=== PATIENT | male | born 1995 | race Hispanic/Latino ===

== ENCOUNTER 2022-11-01 22:28 | Emergency (ER) | payer OTHER ==
[~2022-11-01] VITALS: Ht 172.7 cm; Wt 86.2 kg
[2022-11-01] MEDS ORDERED: CHLORPROMAZINE HCL INJ 25 MG/ML AMP INJ ONE (22:45)
[2022-11-01] MEDS ORDERED: METOCLOPRAMIDE HCL 10 MG/2ML VIAL IM ONE (22:45)
[2022-11-01] MEDS ORDERED: THORAZINE25 MG PO (22:46)
[2022-11-01] MEDS ORDERED: METOCLOPRAMIDE HCL 10 MG/2ML VIAL ONE (22:56)
[2022-11-01] MEDS ORDERED: CHLORPROMAZINE HCL INJ 25 MG/ML AMP ONE (22:56)
== END 2022-11-01 23:24 | disposition home or self-care (01) ==
LOC: ER 22:34
DX: R06.6 Hiccough (principal); R94.31 Abnormal electrocardiogram [ECG] [EKG]
CPT/HCPCS: 93005; 99283; J2765; J3230